=== PATIENT | female | born 1955 | race African-American/Black ===

== ENCOUNTER 2017-03-09 18:43 | Emergency (ER) | payer OTHER ==
[~2017-03-09] VITALS: Ht 160 cm; Wt 83.7 kg
[~2017-03-09 18:43] MED LIST: GABAPENTIN300 MG PO; PERCOCET 5/31 TABLET PO; PROVENTIL HFA6.7 GM IH; ULTRACET1 TABLET PO; ZOFRAN4 MG PO
[2017-03-09 19:46] LABS: HEMATOCRIT 32.3 % (36.0-46.0); MCH 28.3 PG (29.0-34.0); MCHC 34.4 G/DL (30.0-36.0); MCV 82.4 FL (83-99); MEAN PLAT.VOLUME 9.1 uM^3 (9.5-12.4); PLATELET COUNT 248 K/uL (156-360); RBC DIS.WIDTH-CV 12.8 % (11.8-14.6); RBC DIS.WIDTH-SD 38.5 % (39-53); RED BLOOD COUNT 3.92 M/uL (3.80-5.20)
[2017-03-09 20:18] LABS: CHLORIDE 109 mEq/L (99-109); POTASSIUM 3.7 mEq/L (3.7-5.4); SODIUM 143 mEq/L (136-147)
[2017-03-09 20:19] LABS: GLUCOSE 102 mg/dL (70-99)
[2017-03-09 20:21] LABS: ANION GAP 9 MEQ/L (2-14)
[2017-03-09 20:23] LABS: GFR ESTIMATE (CALCULATED) > 59 mL/min/; TROP-I INTERPRETATION NEGATIVE; TROPONIN-I < 0.01 ng/mL (0.0-0.30)
[2017-03-09 20:24] LABS: UREA NITROGEN (BUN) 7 mg/dL (9-23)
[2017-03-10 01:28] VITALS: BP 141/74
== END 2017-03-10 01:37 | disposition home or self-care (01) ==
LOC: EXP 18:43 → EME 18:43 → EXP 03-10 01:37
PROVIDERS: Physician Assistant
DX: R07.89 Other chest pain (principal); F41.9 Anxiety disorder, unspecified; J44.9 Chronic obstructive pulmonary disease, unspecified
CPT/HCPCS: 71020; 71275; 80048; 84484; 85027; 85379; 93005; 94640; 99281; 99285; J2060